=== PATIENT | female | born 1990 | race Caucasian/White ===

== ENCOUNTER 2018-09-30 19:40 | Emergency (ER) | payer MEDICAID ==
[~2018-09-30] VITALS: Ht 175.3 cm; Wt 62.4 kg
[~2018-09-30 19:40] MED LIST: LEVO1.5T12 PO
[2018-09-30 19:49] VITALS: BP 143/99
== END 2018-09-30 20:44 | disposition left against medical advice (07) ==
LOC: ER 19:41
DX: M25.561 Pain in right knee (principal); Z53.21 Procedure and treatment not carried out due to patient leaving prior to being seen by health care provider; Z79.899 Other long term (current) drug therapy